=== PATIENT | female | born 1990 | race Caucasian/White ===

== ENCOUNTER 2017-09-21 10:32 | Emergency (ER) | payer MEDICAID, OTHER ==
[~2017-09-21] VITALS: Ht 162.6 cm; Wt 86.4 kg
[2017-09-21 10:48] VITALS: Ht 162.6 cm; Wt 86.4 kg
[2017-09-21] MEDS ORDERED: LIDOCAINE/MYLANTA 40 ML BTL PO STA (11:02)
[2017-09-21] MEDS ORDERED: morphine 4 MG/ML VIAL IV STA ×2 (11:02→12:32)
[2017-09-21] MEDS ORDERED: PANT40TA3 PO (11:39)
--- NOTE | 2017-09-21 11:41 | RADRPT ---
PROCEDURE: US Abdomen. CLINICAL INDICATION: abdominal pain TECHNIQUE: Multiple real-time images were acquired of the patient's right upper quadrant abdomen a nd retroperitoneum utilizing a high resolution transducer. COMPARISON: None FINDINGS: The study is suboptimal due to overlying bowel gas. The patient was not n.p.o. The liver demonstrates normal echogenicity. The liver is normal in size and no focal solid lesions are seen. The liver measures 14.6 cm in length. The portal vein is patent with normal direction of f low. No intrahepatic biliary dilatation is seen. The gallbladder is not visualized. There is a large area of echogenic shadowing in the gallbladder f dian. The common bile duct measures 5.7 mm in maximal dimension. The pancreas was not well seen due to overlying bowel gas. No free fluid is identified. The right kidney is normal in size, and demonstrate normal echogenicity and cortical thickness. The right kidney measures 10.8 cm in long dimension. There is no evidence of hydronephrosis. There are no kidney stones. RPTAT: AA IMPRESSION: Limited study. Gallbladder was not visualized. Large area of echogenic shadowing in the gallbladder fossa may repre sent a large calcified stone versus overlying bowel gas. .Lenny Grimaldo MD, MD Date Time Electronically viewed and signed by .Lenny Grimaldo MD, on 09/21/2017 11:41 .S/
[2017-09-21 12:06] LABS: ADD UMIC YES; BASOPHIL # 0.1 10^3/ul (0.0-0.1); BASOPHILS % 0.5 % (0.0-2.0); EOSINOPHILS # 0.1 10^3/ul (0.0-0.5); EOSINOPHILS % 0.8 % (0.0-7.0); HEMATOCRIT 36.5 % (37.0-47.0); HEMOGLOBIN 12.5 g/dl (12.0-16.0); LYMPHOCYTES # 2.6 10^3/ul (0.8-2.9); LYMPHOCYTES % 17.1 % (15.0-51.0); MEAN CORPUSCULAR HEMOGLOBIN 29.8 pg (29.0-33.0); MEAN CORPUSCULAR HGB CONC 34.2 g/dl (32.0-37.0); MEAN CORPUSCULAR VOLUME 87.1 fl (82.0-101.0); MEAN PLATELET VOLUME 10.3 fl (7.4-10.4); MONOCYTE # 0.8 10^3/ul (0.3-0.9); MONOCYTES % 4.9 % (0.0-11.0); NEUTROPHIL # 11.7 10^3/ul (1.6-7.5); NEUTROPHILS % 75.7 % (39.0-77.0); PLATELET COUNT 395 10^3/UL (140-415); RED BLOOD COUNT 4.19 10^6/ul (4.20-5.40); RED CELL DISTRIBUTION WIDTH 12.9 % (11.5-14.5); UR ASCORBIC ACID NEGATIVE (NEGATIVE); UR BACTERIA FEW /HPF (NONE SEEN); UR BILIRUBIN (Dip) NEGATIVE (NEGATIVE); UR BLOOD (Dip) 3+ mg/dL (NEGATIVE); UR CLARITY SLIGHTLY CLOUDY (CLEAR); UR COLOR YELLOW (YELLOW); UR GLUCOSE (Dip) NEGATIVE (NEGATIVE); UR KETONES (Dip) NEGATIVE (NEGATIVE); UR LEUKOCYTE ESTERASE (Dip) TRACE Leu/ul (NEGATIVE); UR MUCUS FEW /HPF (NONE SEEN); UR NITRITE (Dip) NEGATIVE (NEGATIVE); UR RBC > 182 /HPF (0-5); UR SPECIFIC GRAVITY (Dip) 1.017 (1.003-1.030); UR SQUAMOUS EPITHELIAL CELL FEW /HPF (FEW); UR TOTAL PROTEIN (Dip) 1+ mg/dl (NEGATIVE); UR UROBILINOGEN (Dip) NEGATIVE (NEGATIVE); WHITE BLOOD COUNT 15.4 10^3/ul (4.8-10.8)
[2017-09-21 12:22] LABS: ALBUMIN 4.5 g/dl (3.3-4.9); ALBUMIN/GLOBULIN RATIO 1.28; CALCIUM 9.3 mg/dl (8.4-10.2); CREATININE 0.58 mg/dl (0.44-1.00); POTASSIUM 4.2 mmol/L (3.5-5.1)
--- NOTE | 2017-09-21 13:35 | RADRPT ---
PROCEDURE: CT Abdomen without contrast. CLINICAL INDICATION: Abdominal pain TECHNIQUE: CT scan of the abdomen was performed on a multidetector high-resolution CT scanner with out intravenous contrast. Coronal and sagittal reformatted images were obtained from the axial sour ce images. Images were reviewed on a high-resolution PACS workstation. The total exam CTDI equals 17 mGy and the total exam DLP equals 653mGy-cm. One or more of the following dose reduction techniques were used: Automated exposure control, Adjustment of the mA and/or kV according to patient size, and /or use of iterative reconstruction technique. DICOM images are available. COMPARISON: Correlation gallbladder ultrasound today. FINDINGS: Evaluation of the solid organs is limited given the lack of intravenous contrast administration. The lung bases are clear. The liver, pancreas, spleen, and adrenals are grossly unremarkable. Tiny hyperdensities in the gallbladder may represent small gallstones. No focal pericholecystic infl ammatory changes. No hydronephrosis. No renal or ureteral stone. No evidence of bowel obstruction of the partially imaged bowel. Normal-caliber appendix. No significant retroperitoneal lymphadenopathy, ascites or evidence of pneumoperitoneum. IMPRESSION: Tiny hyperdensities in the gallbladder may represent small gall stones. No CT evidene of focal peric holecystic inflammatory changes. No renal or ureteral stone. Normal-caliber appendix. RPTAT: AA .Serafin Pearson MD, MD Date Time Electronically viewed and signed by .Serafin Pearson MD, MD on 09/21/2017 13:35 .T/
[2017-09-21] MEDS ORDERED: FAMO-96 PO (13:55)
--- NOTE | 2017-09-21 13:55 | ERD ---
ER Documentation Chief Complaint Chief Complaint blakea from work for epigastric pain 03/28 HPI 27-year-old female presenting to the ER complaining of sharp, nonradiating, epigastric pain, rated at a 6 out of 10. The patient ate breakfast this morning without any issues. When she arrived to work, she suddenly felt the pain in her epigastric area. She had no associated nausea, vomiting, fever, chills, chest pain, or shortness of breath. She does endorse a history of GERD for which she is taking pantoprazole. She denies any recent change in her diet. She did start her menses today. ROS All systems reviewed and are negative except as per history of present illness. Medications Home Meds Active Scripts Famotidine* (Pepcid*) 20 Mg Tablet, 20 MG PO DAILY for 7 Days, TAB Prov:BIA COY MD 09/21/17 Reported Medications Pantoprazole* (Protonix*) 40 Mg Tablet.dr, 40 MG PO DAILY, TAB 09/21/17 Allergies Allergies: Coded Allergies: No Known Drug Allergies (Verified Allergy, Mild, 09/21/17) PMhx/Soc History of Surgery: Yes (fallopian tube removal 2009) Anesthesia Reaction: No Hx Neurological Disorder: No Hx Respiratory Disorders: No Hx Cardiac Disorders: No Hx Psychiatric Problems: No Hx Miscellaneous Medical Probl: Yes (etopic preg 2009, anemia ) Hx Alcohol Use: No Hx Substance Use: No Hx Tobacco Use: No Smoking Status: Never smoker FmHx Family History: No diabetes Physical Exam Vitals Vital Signs Date Time Temp Pulse Resp B/P Pulse Ox O2 Delivery O2 Flow Rate FiO2 09/21/17 14:08 75 17 120/79 100 Room Air 09/21/17 10:48 98.6 69 17 132/75 100 Physical Exam Const: Well-appearing, no apparent distress, nontoxic Head: Atraumatic Eyes: Normal Conjunctiva ENT: Normal External Ears, Nose and Mouth. Neck: Full range of motion..~ No meningismus. Resp: Clear to auscultation bilaterally Cardio: Regular rate and rhythm, no murmurs. 2+ distal pulses in all 4 extremities Abd: Soft,mild epigastric tenderness to palpation, no rebound or guarding, non distended. Negative Driver sign. No McBurney's point tenderness. Normal bowel sounds Skin: No petechiae or rashes Back: No midline or flank tenderness Ext: No cyanosis, or edema Neur: Awake and alert Psych: Normal Mood and Affect Result Diagram: 09/21/17 1145 09/21/17 1145 Results 24 hrs Laboratory Tests Test 09/21/17 11:45 White Blood Count 15.410^3/ul Red Blood Count 4.1910^6/ul Hemoglobin 12.5g/dl Hematocrit 36.5% Mean Corpuscular Volume 87.1fl Mean Corpuscular Hemoglobin 29.8pg Mean Corpuscular Hemoglobin Concent 34.2g/dl Red Cell Distribution Width 12.9% Platelet Count 77529^3/UL Mean Platelet Volume 10.3fl Neutrophils % 75.7% Lymphocytes % 17.1% Monocytes % 4.9% Eosinophils % 0.8% Basophils % 0.5% Nucleated Red Blood Cells % 0.0/100WBC Neutrophils # 11.710^3/ul Lymphocytes # 2.610^3/ul Monocytes # 0.810^3/ul Eosinophils # 0.110^3/ul Basophils # 0.110^3/ul Nucleated Red Blood Cells # 0.010^3/ul Urine Color YELLOW Urine Clarity SLIGHTLY CLOUDY Urine pH 7.0 Urine Specific Rankin 1.017 Urine Ketones NEGATIVEmg/dL Urine Nitrite NEGATIVEmg/dL Urine Bilirubin NEGATIVEmg/dL Urine Urobilinogen NEGATIVEmg/dL Urine Leukocyte Esterase TRACELeu/ul Urine Microscopic RBC > 182/HPF Urine Microscopic WBC 13/HPF Urine Squamous Epithelial Cells FEW/HPF Urine Calcium Oxalate Crystals FEW/HPF Urine Bacteria FEW/HPF Urine Mucus FEW/HPF Urine Hemoglobin 3+mg/dL Urine Glucose NEGATIVEmg/dL Urine Total Protein 1+mg/dl Sodium Level 144mmol/L Potassium Level 4.2mmol/L Chloride Level 104mmol/L Carbon Dioxide Level 30mmol/L Anion Gap 14 Blood Urea Nitrogen 11mg/dl Creatinine 0.58mg/dl Glucose Level 83mg/dl Calcium Level 9.3mg/dl Total Bilirubin 0.0mg/dl Direct Bilirubin 0.00mg/dl Indirect Bilirubin 0.0mg/dl Aspartate Amino Transf (AST/SGOT) 30IU/L Alanine Aminotransferase (ALT/SGPT) 34IU/L Alkaline Phosphatase 170IU/L Total Protein 8.0g/dl Albumin 4.5g/dl Globulin 3.50g/dl Albumin/Globulin Ratio 1.28 Lipase 104U/L Current Medications Medications (Trade) Dose Ordered Sig/Harper Route PRN Reason Start Time Stop Time Status Last Admin Dose Admin Morphine Sulfate (morphine) 4 mg ONCE STAT IV 09/21/17 11:02 09/21/17 11:03 DC 09/21/17 11:37 Miscellaneous Medication (Gi Cocktail (2)) 40 ml ONCE STAT PO 09/21/17 11:02 09/21/17 11:03 DC 09/21/17 11:37 Morphine Sulfate (morphine) 4 mg ONCE STAT IV 09/21/17 12:32 09/21/17 12:34 DC 09/21/17 13:05 Famotidine (Pepcid) 20 mg ONCE ONCE PO 09/21/17 14:00 09/21/17 14:01 DC 09/21/17 14:08 Procedures/MDM EMERGENT LABS AND DIAGNOSTIC STUDIES: Lab Results above were reviewed and interpreted by me. CBC shows leukocytosis without left shift CMP is within normal limits Lipase within normal limits Urine negative Urinalysis shows evidence of contamination by blood due to menses, no evidence of infection Radiology Results as interpreted by Radiology below were reviewed by Randal Coy MD: Ultrasound right upper quadrant: IMPRESSION: Limited study. Gallbladder was not visualized. Large area of echogenic shadowing in the gallbladder fossa may represent a large calcified stone versus overlying bowel gas. .Lenny Grimaldo MD, MD Date Time Electronically viewed and signed by .Lenny Grimaldo MD, MD on 09/21/2017 11: 41 CT abdomen: IMPRESSION: Tiny hyperdensities in the gallbladder may represent small gall stones. No CT evidene of focal pericholecystic inflammatory changes. No renal or ureteral stone. Normal-caliber appendix. .Serafin Pearson MD, MD Date Time Electronically viewed and signed by .Serafin Pearson MD, MD on 09/21/2017 13:35 Initial Nursing notes reviewed. Previous Medical Records requested via the Electronic Health Record. EMERGENCY DEPARTMENT COURSE / MEDICAL DECISION MAKING: Patient is presenting with upper abdominal pain of uncertain etiology. Her vitals were stable upon arrival and she was afebrile and well-appearing. Differential includes but is not limited to biliary colic, biliary obstruction, acute cholecystitis, pancreatitis, hepatitis, lower lobe pneumonia, gastritis, colitis, cardiac pathology, aortic dissection, ureterolithiasis, pyelonephritis. Labs were ordered to evaluate for above and were only remarkable for mild leukocytosis without left shift, likely stress response versus indication of early infection, which includes viral and bacterial infections possibly due to acute viral or bacterial intra-abdominal infection. However, I have a low suspicion for acute surgical abdomen. Ultrasound of the abdomen ordered to evaluate gallbladder, which was limited and did not show any definitive acute abnormalities. CT of the abdomen was ordered given persistent epigastric pain upon reevaluation and showed no acute pathology. At this time I believe the patient is stable for discharge with continued outpatient follow- up. I recommended she make an appointment with her primary care doctor tomorrow. If she starts having worsening symptoms sooner, she was advised to return to the ER immediately. I explained to her that the exact cause of her pain is not known at this time, however if it is very early in the process of a disease, we may not see changes on radiology initially. Patient understands discharge plan. I will prescribe her Pepcid in the meantime as this may still be pain from gastritis. Departure Diagnosis: Primary Impression: Epigastric abdominal pain of unknown etiology Condition: Stable BIA COY MD Sep 21, 2017 13:55
[2017-09-21] MEDS ORDERED: FAMOTIDINE 20 MG TAB PO ONE (14:00)
[2017-09-21 14:08] VITALS: BP 120/79; PULSE 75; RESP 17
== END 2017-09-21 14:10 | disposition home or self-care (01) ==
LOC: E/R 10:32
DX: R10.13 Epigastric pain (principal)
CPT/HCPCS: 36415; 74150; 76705; 80053; 81001; 83690; 85025; 96374; 96376; J2270; Z7502; Z7610

== ENCOUNTER 2017-12-04 08:03 | Day surgery (SDC) | END 2017-12-04 13:54 | disposition home or self-care (01) ==

== ENCOUNTER 2018-03-24 20:13 | Emergency (ER) | END 2018-03-25 00:25 | disposition home or self-care (01) ==